=== PATIENT | female | born 1935 | race Caucasian/White ===

== ENCOUNTER 2018-08-20 22:01 | Emergency (ER) | payer OTHER ==
[~2018-08-20] VITALS: Wt 68.0 kg
[~2018-08-20 22:01] MED LIST: ANTIVERT50 MG PO; ASPIRIN 81 MG; CEFADROXIL500 MG PO; GLUCOVANCE 5/501 TAB PO; HUMULIN 50/50 V10 ML SQ; KLONOPIN0.125 MG/T PO; LANTUS100 U/ML SC; LANTUS100 U/ML SUBCUTANEO; LISINOPRIL10 MG PO; METOCLOPRAMIDE 10 MG; NEURONTIN800 MG PO; PEPCID20 MG PO; PRAVACHOL10 MG PO; PROTONIX40 MG PO; TAGAMET300 MG PO; TRAZODONE HCL50 MG PO; ZESTRIL2.5 MG PO; [UNRECOGNIZED DRUG - OTHER]; [UNRECOGNIZED DRUG - OTHER]
== END 2018-08-20 22:51 | disposition home or self-care (01) ==
LOC: ER 22:01
DX: I10 Essential (primary) hypertension (principal)

== ENCOUNTER 2018-11-09 23:45 | Emergency (ER) | payer OTHER ==
[~2018-11-09] VITALS: Ht 157.5 cm; Wt 66.7 kg
[2018-11-10] MEDS ORDERED: PEPCID AC20 MG PO (06:04)
== END 2018-11-10 06:12 | disposition home or self-care (01) ==
LOC: ER 23:45
DX: K29.60 Other gastritis without bleeding (principal); I16.0 Hypertensive urgency; I10 Essential (primary) hypertension; R07.89 Other chest pain